=== PATIENT | female | born 1950 | race African-American/Black ===

== ENCOUNTER 2025-02-22 09:04 | Outpatient (AMB) | payer MEDICARE, SELFPAY ==
--- NOTE | 2025-02-22 09:09 | A.OFFPC_ITS ---
Vital Signs 02/22/25 09:18 Height 5 ft 7 in Weight 152 lb BMI 23.8 BP 112/67 Blood Pressure Location Lt brachial Position Sitting Respiration 12 Pulse 59 Pulse Source Pulse Oximeter Temp 97.2 F Temp Source Oral Pulse Oximetry (%) 99 Oxygen Delivery Method Room Air Intake Visit Reasons: Intestinal Blockage Intake Note: New patient to establish care Pediatric Immunologist Required: No Allergies Sulfa (Sulfonamide Antibiotics) Allergy (Severe, Verified 02/22/25 09:37) vomitting MARCELLUS Inhibitors Allergy (Mild, Verified 02/22/25 16:11) unknwon lactose Allergy (Mild, Verified 02/22/25 16:11) Unknown shrimp Allergy (Mild, Verified 02/22/25 16:11) unkown strawberries Allergy (Mild, Uncoded 02/22/25 09:51) Hives Medication List - Last Reviewed 02/22/25 by Aldair Ellis MA acetaminophen ER 650 mg PO Q8H PRN amlodipine 5 mg PO DAILY apixaban (Eliquis) 5 mg PO BID atorvastatin 20 mg PO DAILY capecitabine mg PO BID cholecalciferol (vitamin D3) 100 mcg PO DAILY cholestyramine (with sugar) 4 gram 1 ea PO BID-TID diphenoxylate-atropine 2.5-0.025 mg 1 tab PO QID PRN gabapentin 400 mg PO BEDTIME ketorolac 0.5% 1 drp ophthalmic (eye) TID lansoprazole 30 mg PO QAM lidocaine-prilocaine 2.5-2.5 % 1 appl topical DAILY loperamide mg PO magnesium chloride (Slow-Mag) 143 mg PO DAILY metoprolol succinate ER 25 mg PO DAILY pantoprazole 40 mg PO DAILY potassium chloride 20 mEq PO BID propylene glycol-glycerin 1-0.3 % (Artificial Tears (glycerin-peg)) drps ophthalmic (eye) torsemide 10 mg PO DAILY Tobacco use date assessed: 02/22/25 Fall risk assessment: No Falls in past year Last assessed Fall Risk: 02/22/25 Dental Screening Dental Screen Date: 02/22/25 Did you have a dental visit in the last 12 months?: Yes Did you have a dental problem in the last 6 months where you did not have access to dental care?: No Was dental information given to patient?: Yes HPI HPI Comments History of Present Illness Details 75 y/o f with AAA s/p repair, colon val[place] ocarcinoma with mets (on palliative chemo), neuropathy, pancreatic insuff, hx of SBO, CAD, hepatic steaotosis, cholelithiasis, colonic diverticulitis, hx of DVT, GERD, anemia SurgHx: AAA repair 2010, portacath R chest, s/p R hemicolectomy and ileocecal anastomosis, R nephrectomy FHx: Dad alive, 6 siblings, 1 brother SocHx: wheelchair and walker, lives by self, no help in the home. Health Maintenance: Colon: 2022 Mammo 2023 DEXA PAP Vaccines: Flu shot to be done next Tuesday; Tdap 2022, Shingles 2017, PCV 23 2021, PCV 13 2021 AAA screen EKG: [place] of Care: Onco [facility] on chemo Vascular Dr Martinez Visual Acuity: Hearing Screening: Y, Manuel, brother and other brother, Raf ACP: Dietary/Nutrition/Exercise Edu provided: Y History of Present Illness The patient is a 75-year-old female presenting to [facility] care Previous PCP: [facility] records from [facility] reviewed. colorectal cancer with metastasis - on palliative chemo Peripheral neuropathy: - d/t chemo - uses walker and wheelchair Hyperlipidemia/CAD: - On atorvastatin 20 mg. Issues with ove r-supply from pharmacy. Hypertension: - On metoprolol 25 mg daily. HX of DVT - On Eliquis AAA s/p repair has not been able to use R leg since the surgery, has foot drop. Manages. RLE edema taking torsemide with + effect. Review of Systems - Cardiovascular: Reports atrial fibrill ation, managed with Eliquis. Reports swelling in leg, improved without finding a clot. - Gastrointestinal: Reports diarrhea, us es Lomotil and loperamide. History of colorectal cancer surgery and ongoing chemotherapy. - Musculoskeletal: Reports limited mobil ity due to paralysis from hip to toes post-AAA surgery. - Neurological: on chemo leading to robert pheral neuropathy. - Respiratory: Denies any respiratory is sues in the conversation. - Skin: Reports rash with sulfa and stra wberries. Physical Exam General: Well developed, well nourished, in no acute distress. Appears stated age. Head: Normocephalic, atraumatic. Eyes: Pupils are equal, round and reactive to light and accommodation. Conjunctivae are clear. Vision grossly normal.. Lungs: Clear to auscultation bilaterally. No rales, rhonchi or wheeze noted. Good air flow in all marin. Heart: 2/6 murmur, irregularly irregular Musculoskeletal: sitting in w/c, +1 edema RLE, Right foot drop, RLE 1/5 strength , baseline. Pulses: Peripheral pulses are equal and palpable bilaterally. Psych: Mood and affect appropriate. Results Labs 02/21/25 normal CMP, anemia rbc 2.88, Hgb 8.6, Hct 24.4 Discussion Notes I discussed the patient's complex medication needs due to her extensive medical history. We reviewed her medication list to ensure accuracy and noted refills for atorvastatin and magnesium. We discussed lifestyle impacts, including mobility challenges, and I encouraged her to continue utilizing local resources when needed. We also discussed the use of our practice's vanessa for efficient communication and stressed the importance of contacting us directly via this method for prompt responses to any concerns. I informed her of the importance of follow-up within six months unless acute changes occur and reinforced that her medications and immunization status were updated appropriately. Patient was given time to ask questions. All questions were answered to their satisfaction. Assessment and Plan 1. colorectal cancer with metastasis - Continue chemotherapy. Regular oncolog y visits. 2. Peripheral neuropathy - Continue using mobility aids. 3. Hyperlipidemia - Atorvastatin 20 mg continued. 4. Edema RLE cont torsemide 5. Hypertension - Continue metoprolol 25 mg daily. 6. hx DVT - Continue Eliquis due to cancer-related risk. RTO 6 mo for sAWV sooner as needed. Consent Patient was informed and verbally consented to the use of an ambient scribe for clinic note documentation during this visit. Total time spent caring for the patient today was 90 minutes. This includes time spent before the visit reviewing the chart, time spent during the visit, and time spent after the visit on documentation, reviewing laboratory results, diagnostic imaging, medications, performing a medically necessary evaluation, counseling on diagnoses, care coordination, ordering appropriate tests, ordering appropriate medications, review of tests performed by other providers, reporting test results with the patient, communication with other healthcare providers. [facility] Surgical History (Updated 02/22/25 @ 16:20 by Irene Calvo, MEDICAL CLAIMS EXAMINER-) S/P AAA (abdominal aortic aneurysm) repair Social History (Updated 02/22/25 @ 09:16 by Aldair Ellis MA) Household Members: None Both parents involved: No Caregiver staying overnight: No Housing: Apartment Are you a primary health care specialist to a significant other at home: No Do you presently have visiting nurse or other home services: No 75 years or older and lives alone: No Alcohol intake: never Patient Tobacco Use Status: Never used Tobacco e-Cigarette/Vaping Use: Never Used Second Hand Smoke Exposure: No Current occupational status: retired and disabled Current occupational exposures/hazards: No Cognitive needs: No Hearing needs: No Vision needs: Yes (wear glasses) Questionnaire PHQ-9 Over the last 2 weeks, how often have you been bothered by any of the following problems? 1. Little interest or pleasure in doing things: not at all 2. Feeling down, depressed, or hopeless: not at all 3. Trouble falling or staying asleep, or sleeping too much: not at all 4. Feeling tired or having little energy: not at all 5. Poor appetite or overeating: not at all 6. Feeling bad about yourself - or that you are a failure or have let yourself or your family down: not at all 7. Trouble concentrating on things, such as reading the newspaper or watching television: not at all 8. Moving or speaking so slowly that other people could have noticed. Or the opposite - being so fidgety or restless that you have been moving around a lot more than usual: not at all 9. Thoughts that you would be better off or of hurting yourself in some way: not at all Total score: 0 Depression Screening Interpretation: Negative Depression Screening Done: Yes 27578 - PHQ-9 Billing: Yes Source: Developed by Drs. Byron Sal, Patience Kapoor, Hakeem Montalvo and colleagues, with an educational adriane from [employer]. Thrive Questionnaire Date Thrive assessed: 02/22/25 I am a: Patient What is your living situation today?: I have a steady place to live Within the past 12 months, did the food you bought not last and you didn't have the money to get more?: Never true Within the past 12 months, did you worry whether your food would run out before you got money to buy more?: Never true Do you have trouble paying for medicines?: No Do you have trouble getting transportation to medical appointments?: No Do you have trouble paying your heating and electricity bill?: No Do you have trouble taking care of your child, family member or friend?: No Do you have trouble with day-to-day activities such as bathing, preparing meals, shopping, managing finances, etc.?: No Are you currently unemployed and looking for a job?: No Are you interested in more education?: No Please select the resources that you would like help with: None Currently or been in a relationship where the following occur: No concerns reported THRIVE Score: 0 AUDIT C Alcohol Use Questionnaire (AUDIT-C) 1. How often do you have a drink containing alcohol?: Never 3. How often do you have six or more drinks on one occasion?: Never Total Score: 0 Score Reviewed/Action Taken: Yes CHAR-7 AMB Questionnaire CHAR-7 Date CHAR - 7 assessed: 02/22/25 Feeling nervous, anxious, or on edge: 0 = Not at all Not being able to stop or control worryin = Not at all Worrying too much about different things: 0 = Not at all Trouble relaxin = Not at all Being so restless that it is hard to sit still: 0 = Not at all Becoming easily annoyed or irritable: 0 = Not at all Feeling afraid as if something awful might happen: 0 = Not at all Total CHAR-7 score (0-4 normal; 5-9 mild; 10-14 moderate; 15-21 severe): 0 Source: Developed by Drs. Byron Sal, Patience Kapoor, Hakeem Montalvo and colleagues, with an educational adriane from [employer]. CHAR-7 Assessment Billing CHAR-7 Assessment Tool: CHAR-7 Assessment 99822 Physical exam (Primary Care) Vital Signs: Last Vital Signs Temp 97.2 F 02/22/25 09:18 Pulse 59 02/22/25 09:18 Resp 12 02/22/25 09:18 BP 112/67 02/22/25 09:18 Pulse Ox 99 02/22/25 09:18 Oxygen Delivery Method Room Air 02/22/25 09:18 BMI result Body Mass Index 23.8 Tobacco/Smoking Status: Tobacco use Status Tobacco use date assessed 02/22/25 02/22/25 09:18 Patient Tobacco Use Status Never used Tobacco 02/22/25 09:18 e-Cigarette/Vaping Use Never Used 02/22/25 09:18 Depression Screening Interpretation: Negative Thrive Assessment: Date of Thrive Assessment Date Thrive assessed 02/22/25 02/22/25 09:18 Currently or been in a relationship where the following occur: No concerns reported Office Procedures Advance Care Planning Advance Care Planning discussion: Completed/Scanned Date of discussion: 02/22/25 Who was present: pt Forms completed: Health Care Proxy and Living will Time spent: 16-45 minutes Actual minutes spent: 16 Coding Level of Care Code New Pt Level 5 (23112) Complex EM visit Add On G2211 Diagnoses Encounter to establish care with new provider Z76.89 AAA (abdominal aortic aneurysm) I71.40 Presence of rupture: without rupture Colon adenocarcinoma C18.9 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 transplanted heart: alatna heart Associated angina: without angina Hepatic steatosis K76.0 Cholelithiases K80.20 Colon, diverticulosis K57.30 Hx of deep venous thrombosis Z86.718 Secondary hypercoagulability disorder D68.69 On anticoagulant therapy Z79.01 GERD (gastroesophageal reflux disease) K21.9 Anemia D64.9 CPT Codes Advance Care Planning - Time spent: 16-45 minutes ([id number]) PROLONG OUTPT/OFFICE VIS - G2212 Additional Codes PHQ-9 - 17839 - PHQ-9 Billing: Yes ([id number]) CHAR-7 Assessment Billing - CHAR-7 Assessment Tool: CHAR-7 Assessment 69297 ([id number]) Assessment & Plan Assessment & Plan (1) Encounter to establish care with new provider: Code(s): Z76.89 - Persons encountering health services in other specified circumstances (2) AAA (abdominal aortic aneurysm): Comment: s/p repair Code(s): I71.40 - Abdominal aortic aneurysm, without rupture, unspecified Category: Medical Qualifiers: Presence of rupture: without rupture (3) Colon adenocarcinoma: Code(s): C18.9 - Malignant neoplasm of colon, unspecified Category: Medical (4) Neuropathy due to chemotherapeutic drug: Code(s): G62.0 - Drug-induced polyneuropathy; T45.1X5A - Adverse effect of antineoplastic and immunosuppressive drugs, initial encounter Category: Medical (5) Pancreatic insufficiency: Code(s): K86.89 - Other specified diseases of pancreas Category: Medical (6) Hx SBO: Code(s): Z87.19 - Personal history of other diseases of the digestive system Category: Medical (7) CAD (coronary artery disease): Code(s): I25.10 - Atherosclerotic heart disease of alatna coronary artery without angina pectoris Category: Medical Qualifiers: Coronary Disease-Associated Artery/Lesion type: al[place] artery [place] vs. transplanted heart: alatna heart Associated angina: without angina Qualified Code(s): I25.10 - Atherosclerotic heart disease of alat[place] coronary artery without angina pectoris (8) Hepatic steatosis: Code(s): K76.0 - Fatty (change of) liver, not elsewhere classified Category: Medical (9) Cholelithiases: Code(s): K80.20 - Calculus of gallbladder without cholecystitis without obstruction Category: Medical (10) Colon, diverticulosis: Code(s): K57.30 - Diverticulosis of large intestine without perforation or abscess without bleeding Category: Medical (11) Hx of deep venous thrombosis: Code(s): Z86.718 - Personal history of other venous thrombosis and embolism Category: Medical (12) Secondary hypercoagulability disorder: Code(s): D68.69 - Other thrombophilia Category: Medical (13) On anticoagulant therapy: Code(s): Z79.01 - intermediate (current) use of anticoagulants Category: Medical (14) GERD (gastroesophageal reflux disease): Code(s): K21.9 - Gastro-esophageal reflux disease without esophagitis Category: Medical (15) Anemia: Code(s): D64.9 - Anemia, unspecified Category: Medical Plan . Medications: New atorvastatin 20 mg PO DAILY 90 tabs 2RF cholestyramine (with sugar) 4 gram 1 ea PO BID-TID 60 ea 0RF gabapentin 400 mg PO BEDTIME 90 caps 2RF lansoprazole 30 mg PO QAM 90 caps 2RF apixaban (Eliquis) 5 mg PO BID 180 tabs 2RF cholecalciferol (vitamin D3) 100 mcg (2 x 50 mcg (2,000 unit)) PO DAILY 180 caps 2RF torsemide 10 mg PO DAILY 90 tabs 2RF magnesium chloride (Slow-Mag) 143 mg (2 x 71.5 mg) PO DAILY 180 tabs 2RF metoprolol succinate ER 25 mg PO DAILY 90 tabs 2RF potassium chloride 20 mEq PO BID 180 ea 2RF amlodipine 5 mg PO DAILY 90 tabs 2RF Patient Instructions: Walk-In Care (Urgent Care): We Make it Easy Walk-in for urgent medical issues such as: ? Seasonal Allergies ? Insect Bites ? Cough ? Diarrhea ? Acute Asthma Attacks ? Back, Knee or Joint Pain ? Ear Infection ? Fever without a Rash ? Headaches ? Nausea ? [place] Eye, Rash or Skin Irritation ? Sore Throat ? Sports Physicals ? Vomiting Most insurances are accepted. Patients do not need to be part of the [facility] to seek care at the walk-in clinic. Locations [address] [place] [address] , [place] [address] ? [phone] [facility] Walk-In Care in [place] provides services to ages 18 and over. Open Tuesday-Tuesday: 7 a.m. to 5 p.m. and Tuesday: 9 a.m. to 3 p.m.* *Hours may vary due to staffing availability. To confirm Walk-In Care hours in [place], please call [phone]. [address] [place] [address] ? [phone] [facility] Walk-In Care in [place] provides services to ages 12 and over. Open Tuesday-Tuesday: 8 a.m. to 5 p.m. Hours may vary due to staffing availability. To confirm Walk-In Care hours in [place], please call [phone]. LABORATORY SERVICES: [facility] Lab ? Primary Location [address] [place] [address] Tuesday through Tuesday 6:00 AM ? 5:00 PM Tuesday 7:00 AM ? 11:00 AM* [phone] The [facility] Lab is centrally located near the front entrance of the [facility] for easy outpatient access. Convenient parking is provided for outpatients. *Hours may vary due to staffing availability. To confirm Laboratory hours for any location, please call [phone]. Offsite Location For your convenience, we offer offsite laboratory draw stations at the following locations: [address] [facility], [place] ? [address] [facility], [address], [place] Tuesday through Tuesday 7:30 AM ? 1:00 PM* [phone] *Hours may vary due to staffing availability. To confirm Laboratory hours for any location, please call [phone]. [place] ? [address] [facility], [place] Tuesday through Tuesday 6:00 AM ? 3:30 PM* Tuesday 6:30 AM ? 3 PM* [phone] *Hours may vary due to staffing availability. To confirm Laboratory hours for any location, please call [phone]. [address] [facility] Tuesday through Tuesday 7:30 AM ? 4:00 PM* [phone] *Hours may vary due to staffing availability. To confirm Laboratory hours for any location, please call [phone] [place] [address] Tuesday through 9:00 AM ? 4:00 PM* *Hours may vary due to staffing availability. To confirm Laboratory hours for any location, please call [phone]. Appointments are not necessary. Walk-ins are welcome. Like all the departments throughout the [facility], our Lab undergoes frequent reviews to ensure the quality and accuracy of test results, and our staff takes special pride in its status as a nationally accredited facility. Patient Portal: [facility] ONE PATIENT. ONE RECORD. BETTER CARE. [facility] has a fully integrated, cutting- edge mobile electronic health information system that has revolutionized the way we care for our patients and manage our organization. This system improves communication and coordination enabling us to provide safe, higher-quality care, and an overall positive experience for staff and patients. Our first priority, as always, is to deliver the highest quality care possible. The system is running in the background supporting that priority. This portal is for all [facility] services and practices. If you are experiencing any technical difficulties with enrolling or logging into the Patient Portal please complete the [facility] Patient Portal Technical Support Form. [facility] now offers a new secure on-line interactive tool for patients to review their health information ? ?Patient Portal. This interactive web portal will enable patients and their families to take an active role in their care by providing easy, secure access to their health information via the internet. The Patient Portal provides patients with instant access to their health information, including laboratory results, medications, allergies, demographic information, visit history, and more. In addition to managing their own care, parents and health care proxies with authorized consent will appreciate the ability to access the records of those individuals for whom they provide care. Please note: if you wish to gain access (Proxy) to another patient?s portal, you will be required to come to the Medical Records Department in person at [facility]. Both the patient giving proxy access and the proxy will need to provide photo identification and complete the appropriate authorization. The Patient Portal also allows track their appointments online. The [facility] Patient Portal also saves patients time by allowing them to submit updates to their demographic and contact information prior to their visits. Portal email notifications will also alert patients to any new activity on their portal, such as test results and new appointments. In order to initially enroll in the [facility] Patient Portal, you will need to enter some required information including the following: * your [facility] Medical Record number * your personal home email address * name * date of Please note: In order to enroll in the [facility] Patient Portal, we need to have your email address on file in your electronic medical record. ?The email address needs to be specific for one person (yourself) in order for your Portal enrollment to be successful. ?You can update your email address in person with our Registration staff when you are registering for a hospital visit. ?Otherw ise, you will need to come to the Health Information Management (Medical Records) Department at [facility]. ?We are open from Tuesday ? Tuesday from 7:30 a.m. ? 4:30 p.m. ?You will be required to present a photo id. Once you have successfully enrolled in the Patient Portal, you will receive a one-time user id and password for the Portal, sent to your email address. ?This will allow you to log into the Patient Portal within 99 hrs and reset your own logon id and password, and define personal security questions. ?Once your permanent login and password have been set, you can log into the [facility] Patient Portal at any time via the blue button above or from the Portal Logon button on any page of the [facility] website. [facility] encourage all of our patients to enroll in Patient Portal as it presents a valuable opportunity for patients and their families to actively participate in their care and stay healthy Welcome to [facility]. ?We look forward to working with you.
[2025-02-22 09:18] VITALS: BP 112/67; PULSE 59; RESP 12; TEMP 36.2; O2SAT 99; BMI 23.8
--- OUTSIDE RECORDS SUMMARY | 2025-02-22 09:45 | XMS_ITS | Clinical Summary ---
Author Organization [facility] Address [address] [place] [address] Care Team Providers Care Food And Beverage Order Clerk Name Role Phone Unavailable Primary Care Provider Unavailabl e Source Comments PLEASE NOTE, if this patient is a minor, it may be UNLAWFUL to discuss sensitive information that is contained in these records (such as FAMILY PLANNING, MENTAL HEALTH or SUBSTANCE ABUSE) with the minor patient's parent or other person without the patient's specific authorization.[facility] Medications No known medications Active Problems No known active problems Social History Tobacco Use Types Packs/Day Years Used Date Smoking Tobacco: Never Assessed Social Connections Answer Date Recorded Connectedness 0 02/24/2024 Financial Resource Strain Answer Date R ecorded Financial Resource Strain 0 2019 Stress Answer Date Recorded Stress 0 08/31/2019 Physical Activity Answer Date Recorded Physical Activity 0 08/31/2019 Food Insecurity Answer Date Recorded Food 0 03/01/2024 Transportation Needs Answer Date Record ed Transportation 0 08/31/2019 Housing Stability Answer Date Recorded Housing 0 08/31/2019 Safety and Environment Answer Date Elvin rded Safety 0 08/31/2019 Utilities Answer Date Recorded Utilities 0 08/31/2019 Employment Answer Date Recorded Stress 0 02/24/2024 Comments Unknown Sex and Gender Information Value Date Recorded Sex Assigned at Not on file Legal Sex Female 11:48 AM PST Gender Identity Not on file Sexual Orientation Not on file Last Filed Vital Signs Vital Sign Reading Time Taken Comments Blood Pressure 135/86 11/06/2021 10:25 AM EDT Pulse 77 11/06/2021 10:25 AM EDT Temperature - - Respiratory Rate - - Oxygen Saturation - - Inhaled Oxygen Concentration - - Weight - - Height - - Body Mass Index - - Plan of Treatment Health Maintenance Due Date Last Done Comments Dental FMX/Pano 1950 Dental Perio Charting 1950 Hepatitis C Screening 1950 Lipid Screening 1950 Tobacco Screening 1950 Imm-DTaP/Tdap/Td (1 - Tdap) 1969 CT Colonography 1995 Colonoscopy 1995 Colorectal Cancer Screening 1995 FIT/gFOBT 1995 Fecal DNA 1995 Flexible Sigmoidoscopy 1995 Imm-Zoster, Recombinant (1 of 2) 01/16/2000 Imm-Pneumococcal 50+ (2 of 2 - PCV) 07/07/201307/07 Bone Density Screening 2015 Falls Prevention 2015 Hypertension Screening (#1) 11/06/2022 Dental Examination 11/08/2022 11/06/2021 Alcohol and Drug Screen 06/06/2024 Depression Annual Screen 06/06/2024 Dental BW 08/24/2024 08/23/2023 Dental Prophy 08/24/2024 08/23/2023, 11/06/2021 Imm-RSV (adult) (1 - 1-dose 75+ series) 2025 [id number]-15 ( - 2023- season) 2025 Imm-Influenza (#1) 2025 Procedures Procedure Name Priority Date/Time Associated Diagnosis Comments BITEWINGS - FOUR RADIOGRAPHIC IMAGES Routine 08/23/2023 1:00 PM EDT Encounter for dental examination and cleaning without abnormal findings Full PROPHYLAXIS - ADULT Routine 024 1:00 PM EDT Encounter for dental examination and cleaning without abnormal findings PERIODIC ORAL EVALUATION ESTABLISHED PATIENT Routine 11/06/2021 9:00 AM EDT Gingivitis, chronic, plaque induced from Last 3 Months or Most Recently Relevant to Health Maintenance Insurance [facility]
--- OUTSIDE RECORDS SUMMARY | 2025-02-22 09:45 | XMS_ITS | Clinical Summary ---
Author Organization [facility] Address [address] [place] [address] Care Team Providers Care Divorce Lawyer Name Role Phone Martin Guerrero Primary Care Provider [phone] Social History Tobacco Use Types Packs/Day Years Used Date Smoking Tobacco: Never Assessed Comments Unknown Sex and Gender Information Value Date Recorded Sex Assigned at Not on file Legal Sex Female 1:08 PM EDT Gender Identity Not on file Sexual Orientation Not on file Plan of Treatment Health Maintenance Due Date Last Done Comments Hepatitis C Screening 1950 DTaP/Tdap/Td (1 - Tdap) 01/16/1968 Pneumococcal 50+ years (1 of 1 - PCV) 01/16/2000 Zoster (Shingrix) (1 of 2) 01/16/2000 Bone Density 2015 RSV (1 - 1-dose 75+ series) 2025 COVID-19 Vaccine ( - 2023-2 5 season) 2025 Influenza (#1) 2025 HPV Vaccine (No Doses Required) Completed Hep A Aged Out No longer eligi ble based on patient's age to complete this topic Hep B Aged Out No longer eligi ble based on patient's age to complete this topic Hib Aged Out No longer eligi ble based on patient's age to complete this topic Mammogram/Breast Imaging Discontinued Meningococcal ACWY Aged Out No longer eligible based on patient's age to complete this topic Pap Smear Discontinued Zoster (Zostavax) Discontinued Insurance [facility] [employer] Care Teams Divorce Lawyer Relationship Specialty Start Date End Date Martin Guerrero DO [address] [facility] [place] [address] PCP - General Internal Medicine 01/17/15
--- OUTSIDE RECORDS SUMMARY | 2025-02-22 09:45 | XMS_ITS | Clinical Summary ---
Author Organization [facility], Address [address] [place] [address] Phone Care Team Providers Care Hide Puller Name Role Phone Martin Guerrero DO Primary Care Provider [phone] Allergies Active Allergy Reactions Criticality Noted Date Comments Oswaldo Inhibitors Nausea Medium 09/09/2022 Amoxicillin Itching,Rash,Vomiti ng High 09/09/2022 Has tolerated ceftriaxone Other Low 09/23/2022 Strawberries- break out-low Red seasonings (paprika, red grande pepper) -rash- moderate Shellfish Allergy Other (see comments),Nausea Low 09/14/2022 Shrimp Flavor Agent (Non-Screening) Nausea Low 09/14/2022 Sulfa Antibiotics Itching,Rash,Vomiti ng High 09/14/2022 Sulfadiazine Itching,Rash,Vomiti ng High 09/09/2022 Medications acetaminophen (TYLENOL 8 HOUR) 650 MG 8 hr tablet Take 650 mg by mouth 3 Active albuterol HFA (PROVENTIL HFA;VENTOLIN HFA) 108 (90 Base) MCG/ACT inhaler Active allopurinol (ZYLOPRIM) 100 MG tablet Take 1 tablet by mouth 3 Active atorvastatin (LIPITOR) 20 MG tablet Take 1 tablet by mouth 1 (one) time each day Active Cholecalciferol 50 MCG (1999 UT) capsule Take 1 capsule by mouth 2 (two) times a day Active esomeprazole (NexIUM) [address] capsule Take 40 mg by mouth 3 Active ferrous sulfate 324 MG tablet delayed-release Take 324 mg by mouth 3 Active fluticasone HFA (FLOVENT HFA) 220 MCG/ACT inhaler Active gabapentin (NEURONTIN) 400 MG capsule Take 400 mg by mouth in the morning and 400 mg in the evening. 2 Active losartan (COZAAR) 100 MG tablet Take 50 mg by mouth 8 Active metoprolol succinate XL (TOPROL XL) 25 MG 24 hr tablet Take 50 mg by mouth 1 (one) time each day Active rosuvastatin (CRESTOR) 5 MG tablet Take 5 mg by mouth 3 Active torsemide (DEMADEX) 10 MG tablet Take 10 mg by mouth 1 Active nystatin (MYCOSTATIN) powder Apply 1 application topically 3 Active lidocaine-prilo tanja (EMLA) cream APPLY TOPICALLY ONCE 60 MINUTES PRIOR TO TREATMENT 3 Active prochlorperazin e (COMPAZINE) 5 MG tablet TAKE 1-2 TABLETS BY MOUTH EVERY 6 HOURS NEEDED FOR NAUSEA 3 Active cyanocobalamin (VITAMIN B-12) 100 MCG tablet Take 50 mcg by mouth 1 (one) time each day Active Multiple Vitamin (multivitamin) tablet Take 1 tablet by mouth 1 (one) time each day Active Active Problems Problem Noted Date Diagnosed Date Gout 09/24/2022 Asthma 09/24/2022 Abdominal aortic aneurysm 09/14/2022 Aneurysm of iliac artery 09/14/2022 Cecal mass 09/14/2022 Deep venous thrombosis 09/14/2022 Dyspnea on exertion 09/14/2022 Edema 09/14/2022 Gastroesophageal reflux disease 09/14/2022 Hyperlipidemia 09/14/2022 Hypertensive disorder 09/14/2022 Malignant adenomatous neoplasm 09/14/2022 Neuropathy 09/14/2022 Obese class I 09/14/2022 Proteinuria 09/14/2022 Screening status 09/14/2022 Total nephrectomy 09/14/2022 Intra-abdominal collection 08/06/2022 Family History Medical History Relation Comments Heart disease Mother Hypertension Mother Relation Status Comments Father Unknown Mother Social History Tobacco Use Types Packs/Day Years Used Date Smoking Tobacco: Former Cigarettes Q uit: 2010 Smokeless Tobacco: Never Tobacco Cessation:Counseling Given: Not Answered Alcohol Use Standard Drinks/Week Comments Yes 0 (1 standard drink = 0.6 oz pur e alcohol) occas Comments Unknown Sex and Gender Information Value Date Recorded Sex Assigned at Not on file Legal Sex Female 5:21 PM EST Gender Identity Not on file Sexual Orientation Not on file Last Filed Vital Signs Vital Sign Reading Time Taken Comments Blood Pressure 114/71 09/24/2022 12:17 PM EDT Pulse 73 09/24/2022 12:17 PM EDT Temperature 36.4 C (97.6 F) 09/24/2022 12:17 PM EDT Respiratory Rate 16 09/24/2022 12:17 PM EDT Oxygen Saturation 99% 09/24/2022 12:17 PM EDT Inhaled Oxygen Concentration - - Weight 84.4 kg (186 lb) 09/24/2022 12:17 PM EDT Height 170.2 cm (5' 7 ) 09/24/2022 12:17 PM EDT Body Mass Index 29.13 09/24/2022 12:17 PM EDT Plan of Treatment Health Maintenance Due Date Last Done Comments Breast Cancer Screening 1950 Colorectal Cancer Screening: Annual FOBT 1999 Colorectal Cancer Screening: Colonoscopy 1999 Colorectal Cancer Screening: Sigmoidoscopy 1999 Hepatitis B Vaccine (2 of 3 - Hep B Twinrix 3-dose series) 09/03/2021 08/06/2021 Influenza Vaccine (#1) 2025 Pneumococcal Vaccine: 50+ Years Completed 03/08/2016, 06/06/2015, 07/07/2012 Pneumococcal Vaccine: Peds ( 0 to 5 Years) and At-Risk Patients (6 to 49 Years) Discontinued 03/08/2016, 06/06/2015, 07/07/[address] [place] [address] Care Teams Hide Puller Relationship Specialty Start Date End Date Martin Guerrero DO [address] [place] [address] PCP - General 06/16/20
== END 2025-02-22 10:11 | disposition home or self-care (01) ==
PROVIDERS: PCP Nurse Practitioner Family; Visit Provider Nurse Practitioner Family
DX: Z76.89 Persons encountering health services in other specified circumstances (principal); I71.40 Abdominal aortic aneurysm, without rupture, unspecified; C18.9 Malignant neoplasm of colon, unspecified; G62.0 Drug-induced polyneuropathy; T45.1X5A Adverse effect of antineoplastic and immunosuppressive drugs, initial encounter; K86.89 Other specified diseases of pancreas; Z87.19 Personal history of other diseases of the digestive system; I25.10 Atherosclerotic heart disease of native coronary artery without angina pectoris; K76.0 Fatty (change of) liver, not elsewhere classified; K80.20 Calculus of gallbladder without cholecystitis without obstruction; K57.30 Diverticulosis of large intestine without perforation or abscess without bleeding; Z86.718 Personal history of other venous thrombosis and embolism; D68.69 Other thrombophilia; Z79.01 Long term (current) use of anticoagulants; K21.9 Gastro-esophageal reflux disease without esophagitis; D64.9 Anemia, unspecified

== ENCOUNTER → 2025-02-22 09:04 | Outpatient (BNVA) | payer MEDICARE, SELFPAY | PROVIDERS: PCP Nurse Practitioner Family; Visit Provider Nurse Practitioner Family | DX: K21.9 Gastro-esophageal reflux disease without esophagitis (principal); C18.9 Malignant neoplasm of colon, unspecified; E78.5 Hyperlipidemia, unspecified; I25.10 Atherosclerotic heart disease of native coronary artery without angina pectoris; Z86.718 Personal history of other venous thrombosis and embolism; Z79.01 Long term (current) use of anticoagulants; R60.0 Localized edema; I10 Essential (primary) hypertension; I71.40 Abdominal aortic aneurysm, without rupture, unspecified; G62.0 Drug-induced polyneuropathy; T45.1X5A Adverse effect of antineoplastic and immunosuppressive drugs, initial encounter; K86.89 Other specified diseases of pancreas; K76.0 Fatty (change of) liver, not elsewhere classified; K80.20 Calculus of gallbladder without cholecystitis without obstruction; K57.30 Diverticulosis of large intestine without perforation or abscess without bleeding; D68.69 Other thrombophilia; D64.9 Anemia, unspecified; Z76.89 Persons encountering health services in other specified circumstances; Z87.19 Personal history of other diseases of the digestive system | CPT/HCPCS: 96127; 99202; 99497 ==